=== PATIENT | male | born 1985 ===

== ENCOUNTER 2021-07-11 04:31 | Day surgery (SDC) | payer OTHER ==
[2021-07-07 13:04] VITALS: BMI 38.2
[2021-07-11] MEDS ORDERED: DEXMEDETOMIDINE HCL 200 MCG/2 ML IVPB ONE (14:56)
[2021-07-11] MEDS ORDERED: ACETAMINOPHEN INJECTION 100 ML IVPB ONE (14:57)
[2021-07-11] MEDS ORDERED: PROPOFOL 20 ML ONE (14:58)
[2021-07-11] MEDS ORDERED: MIDAZOLAM HCL 2 MG/2 ML SINGLE DOSE VIAL ONE ×2 (14:59→15:16)
[2021-07-11] MEDS ORDERED: LIDOCAINE HCL/PF 2% SDV 5ML VIAL ONE (15:07)
[2021-07-11] MEDS ORDERED: BENZOIN/ALOE VERA/STORAX/TOLU 58 ML BOTTLE ONE (15:11)
[2021-07-11] MEDS ORDERED: BUPIVACAINE HCL/PF 0.5% (5MG/ML) 10 ML VIAL ONE (15:17)
[2021-07-11] MEDS ORDERED: BUPIVACAINE HCL/PF 0.5% (5 MG/ML) 30 ML VIAL IJ ONE (15:18)
[2021-07-11] MEDS ORDERED: LIDOCAINE HCL 1%, 10 MG/ML (20ML VIAL) INF ONE (15:18)
[2021-07-11] MEDS ORDERED: LIDOCAINE HCL 1%, 10 MG/ML (20ML VIAL) ONE (15:19)
[2021-07-11] MEDS ORDERED: KETOROLAC TROMETHAMINE 30 MG/1 ML VIAL ONE (15:26)
[2021-07-11 17:42] VITALS: TEMP 98.7
[2021-07-11 18:20] VITALS: BP 110/74; PULSE 84
== END 2021-07-11 18:35 | disposition home or self-care (01) ==
LOC: JASU-SURG 04:31
PROVIDERS: ATTEND Surgery Vascular Surgery
PROC: 06BY0ZC Excision of Hemorrhoidal Plexus, Open Approach (ICD-10-PCS; 2021-07-11)
PROC: 0D8R0ZZ Division of Anal Sphincter, Open Approach (ICD-10-PCS; principal; 2021-07-11 14:30)
DX: K60.3 Anal fistula (principal); K64.8 Other hemorrhoids
CPT/HCPCS: 94760; J0131